=== PATIENT | male | born 1980 ===

== ENCOUNTER 2021-03-16 18:31 | Emergency (ER) | payer OTHER ==
[~2021-03-16] VITALS: Ht 180.3 cm; Wt 90.7 kg
[~2021-03-16 18:31] MED LIST: PERCOCET 5/3251 TAB PO; RECTICARE30 GM TP; ZANTAC150 M3 PO
[2021-03-16] MEDS ORDERED: PERCOCET 10-321 EACH PO (20:24)
[2021-03-16] MEDS ORDERED: LEVOFLOXACIN750 MG PO (20:24)
== END 2021-03-16 20:54 | disposition home or self-care (01) ==
LOC: ER 18:31
DX: S62.625A Displaced fracture of middle phalanx of left ring finger, initial encounter for closed fracture (principal); S61.225A Laceration with foreign body of left ring finger without damage to nail, initial encounter; W20.8XXA Other cause of strike by thrown, projected or falling object, initial encounter; Y93.89 Activity, other specified; Y92.810 Car as the place of occurrence of the external cause; Y99.8 Other external cause status

== ENCOUNTER 2021-03-24 05:35 | Day surgery (SDC) | payer OTHER ==
[~2021-03-24 05:35] MED LIST changes: +LEVOFLOXACIN750 MG PO; +PERCOCET 10-321 EACH PO
== END 2021-03-24 13:15 | disposition home or self-care (01) ==
LOC: CIR.AMB 05:35
PROVIDERS: ATTEND Surgery Surgery of the Hand
DX: S62.625A Displaced fracture of middle phalanx of left ring finger, initial encounter for closed fracture (principal); S66.115A Strain of flexor muscle, fascia and tendon of left ring finger at wrist and hand level, initial encounter; Z20.822 Contact with and (suspected) exposure to COVID-19